=== PATIENT | female | born 2000 | race Caucasian/White ===

== ENCOUNTER 2019-01-22 17:56 | Emergency (ER) | payer OTHER ==
[~2019-01-22] VITALS: Ht 170.2 cm; Wt 68.0 kg
[2019-01-22] MEDS ORDERED: PRENA1 TRUE CO1 EACH (18:04)
== END 2019-01-22 20:40 | disposition home or self-care (01) ==
LOC: ER 17:56
DX: O26.892 Other specified pregnancy related conditions, second trimester (principal); M62.830 Muscle spasm of back; Z34.02 Encounter for supervision of normal first pregnancy, second trimester

== ENCOUNTER → 2019-04-20 | Outpatient (CLI) | payer OTHER ==
[~2019-04-20] MED LIST: PRENA1 TRUE CO1 EACH
== END | disposition home or self-care (01) ==
LOC: NST 15:29
DX: Z34.83 Encounter for supervision of other normal pregnancy, third trimester (principal)

== ENCOUNTER 2024-06-04 09:32 | Outpatient (CLI) | payer OTHER | END 2024-06-04 09:33 | disposition home or self-care (01) | LOC: PRENATAL 09:32 | PROVIDERS: ATTEND Obstetrics & Gynecology Maternal & Fetal Medicine | DX: O26.849 Uterine size-date discrepancy, unspecified trimester (principal); O36.8199 Decreased fetal movements, unspecified trimester, other fetus; Z3A.32 32 weeks gestation of pregnancy ==

== ENCOUNTER 2024-06-17 03:33 | Inpatient (IN) | payer OTHER ==
[~2024-06-17] VITALS: Ht 172.7 cm; Wt 88.5 kg
[2024-06-17] VITALS (7 sets, daily range): BP systolic 96–118; BP diastolic 61–94; O2SAT 100
[2024-06-17] MEDS ORDERED: BETAMETHASONE ACETATE,SOD PHOS 30 MG/5 ML ML IM SCH (03:43)
[2024-06-17] MEDS ORDERED: AMPICILLIN SODIUM 2,000 MG VIAL IV ONE (03:45)
[2024-06-17] MEDS ORDERED: RINGERS SOLUTION,LACTATED 1,000 ML IV SCH (03:45)
[2024-06-17] MEDS ORDERED: AMPICILLIN SODIUM 1,000 MG VIAL IV SCH (04:00)
[2024-06-17 04:34] LABS: HEMATOCRIT 33.8 % (36.0-45.00); HEMOGLOBIN 11.1 g/dL (12.0-15.00); MEAN CELL VOLUME 85.9 fL (80.00-100.00); MEAN CORPUSCULAR HEMOGLOBIN 28.1 pg (27.00-32.0); MEAN CORPUSCULAR HGB CONC 32.7 g/dl (32.0-36.0); PLATELET COUNT 218 K/uL (150-450); RED BLOOD COUNT 3.94 M/uL (4.00-6.00); RED CELL DISTRIBUTION WIDTH 14.1 % (11.5-14.5)
[2024-06-17 04:50] LABS: INR 0.98; PARTIAL THROMBOPLASTIN TIME 26.8 SECONDS (22.0-34.0); PROTHROMBIN TIME 10.7 SECONDS (9.0-11.5)
[2024-06-17 04:55] LABS: ALBUMIN 2.9 gm/dL (3.4-5.0); BILIRUBIN TOTAL 0.25 mg/dL (0.3-1.2); CALCIUM 8.5 mg/dL (8.5-10.1); CREATININE SERUM 0.45 mg/dL (0.55-1.02); GFR 169.76; GLOBULINA 3.6 G/DL (2.4-3.5); POTASSIUM 3.73 mEq/L (3.5-5.1); TOTAL PROTEIN 6.5 gm/dL (6.4-8.2)
[2024-06-17 05:01] LABS: PH,URINE 5.5 (5.0-8.0); URINE APPEARANCE Clear; URINE BILIRRUBIN Negative (NEGATIVE); URINE BLOOD Negative; URINE COLOR Yellow; URINE GLUCOSE Negative (NEGATIVE); URINE KETONE Trace (NEGATIVE); URINE LEUKOCYTE Small; URINE NITRATE Negative; URINE PROTEIN Trace (NEGATIVE)
[2024-06-17 05:02] LABS: URINE BACTERIA 6758.4 uL (0.0-1933); URINE CAST 2.74 uL (0.0-1.40); URINE EPITHELIAL CELLS 95.8 uL (0.0-38.8); URINE RBC 20.4 uL (0.0-20.8)
[2024-06-17 05:14] LABS: URINE CRYSTALS MANY /HPF
[2024-06-17] MEDS ORDERED: PROMETHAZINE HCL 25 MG/ML AMPUL IV ONE (05:30)
[2024-06-17] MEDS ORDERED: FAMOTIDINE/PF 20 MG/2 ML VIAL IV PUSH ONE (05:30)
[2024-06-17] MEDS ORDERED: PROMETHAZINE HCL 25 MG/ML AMPUL ONE (11:59)
[2024-06-17] MEDS ORDERED: PROMETHAZINE HCL 25 MG/ML AMPUL IV NR (12:00)
[2024-06-17] MEDS ORDERED: MEPERIDINE HCL/PF 50 MG/ML VIAL IV ONE (13:30)
[2024-06-17] MEDS ORDERED: PROMETHAZINE HCL 25 MG/ML AMPUL IV PRN (17:00)
[2024-06-17] MEDS ORDERED: FAMOTIDINE/PF 20 MG/2 ML VIAL IV SCH (18:00)
[2024-06-18 04:08] VITALS: BP 105/69
[2024-06-18 06:29] LABS: HEMATOCRIT 31.1 % (36.0-45.00); HEMOGLOBIN 10.5 g/dL (12.0-15.00); MEAN CELL VOLUME 85.3 fL (80.00-100.00); MEAN CORPUSCULAR HEMOGLOBIN 28.8 pg (27.00-32.0); MEAN CORPUSCULAR HGB CONC 33.8 g/dl (32.0-36.0); PLATELET COUNT 221 K/uL (150-450); RED BLOOD COUNT 3.64 M/uL (4.00-6.00); RED CELL DISTRIBUTION WIDTH 13.9 % (11.5-14.5)
[2024-06-18 06:35] VITALS: BP 99/65; O2SAT 100
[2024-06-18 08:15] LABS: ALBUMIN 2.6 gm/dL (3.4-5.0); BILIRUBIN TOTAL 0.59 mg/dL (0.3-1.2); CALCIUM 8.3 mg/dL (8.5-10.1); CREATININE SERUM 0.36 mg/dL (0.55-1.02); GFR 219.62; GLOBULINA 3.4 G/DL (2.4-3.5)
[2024-06-18 12:01] VITALS: BP 110/72; O2SAT 100
[2024-06-18 15:11] VITALS: BP 108/76
== END 2024-06-18 18:34 | disposition home or self-care (01) | DRG 833 ==
LOC: LDR 03:33
PROVIDERS: Obstetrics & Gynecology; ADMIT Obstetrics & Gynecology; ATTEND Obstetrics & Gynecology
PROC: BY4FZZZ Ultrasonography of Third Trimester, Single Fetus (ICD-10-PCS; principal; 2024-06-17)
PROC: BT43ZZZ Ultrasonography of Bilateral Kidneys (ICD-10-PCS; 2024-06-17)
PROC: 4A1HXCZ Monitoring of Products of Conception, Cardiac Rate, External Approach (ICD-10-PCS; 2024-06-17)
PROC: BF42ZZZ Ultrasonography of Gallbladder (ICD-10-PCS; 2024-06-17)
DX: O26.893 Other specified pregnancy related conditions, third trimester (principal); K29.70 Gastritis, unspecified, without bleeding; O99.613 Diseases of the digestive system complicating pregnancy, third trimester; K80.20 Calculus of gallbladder without cholecystitis without obstruction; Z3A.34 34 weeks gestation of pregnancy; O23.43 Unspecified infection of urinary tract in pregnancy, third trimester; Z20.822 Contact with and (suspected) exposure to COVID-19

== ENCOUNTER 2024-06-22 11:10 | Inpatient (IN) | payer OTHER ==
[~2024-06-22] VITALS: Ht 172.7 cm; Wt 88.5 kg
[2024-06-22 10:23] VITALS: BP 114/76; O2SAT 99
[~2024-06-22 11:10] MED LIST changes: -AMPICILLIN SOD500 MG PO; -PEPCID AC20 MG PO; -PREVACID15 M1 PO
[2024-06-22] MEDS ORDERED: PEPCID AC20 MG PO (11:23)
[2024-06-22] MEDS ORDERED: PREVACID15 M1 PO (11:23)
[2024-06-22] MEDS ORDERED: AMPICILLIN SOD500 MG PO (11:24)
[2024-06-22] MEDS ORDERED: PANTOPRAZOLE SODIUM 40 MG/VIAL VIAL IV SCH (11:30)
[2024-06-22] MEDS ORDERED: RINGERS SOLUTION,LACTATED 1,000 ML IV SCH (11:30)
[2024-06-22] MEDS ORDERED: CEFAZOLIN SODIUM 1,000 MG VIAL IV SCH (12:00)
[2024-06-22 12:16] LABS: HEMATOCRIT 32.2 % (36.0-45.00); HEMOGLOBIN 10.7 g/dL (12.0-15.00); MEAN CELL VOLUME 85.5 fL (80.00-100.00); MEAN CORPUSCULAR HEMOGLOBIN 28.4 pg (27.00-32.0); MEAN CORPUSCULAR HGB CONC 33.2 g/dl (32.0-36.0); PLATELET COUNT 249 K/uL (150-450); RED BLOOD COUNT 3.77 M/uL (4.00-6.00); RED CELL DISTRIBUTION WIDTH 14.3 % (11.5-14.5)
[2024-06-22] MEDS ORDERED: PROMETHAZINE HCL 25 MG/ML AMPUL ONE (12:40)
[2024-06-22] MEDS ORDERED: MEPERIDINE HCL/PF 25 MG/ML VIAL IV ONE (13:30)
[2024-06-22] MEDS ORDERED: PROMETHAZINE HCL 25 MG/ML AMPUL IV ONE (13:30)
[2024-06-22 13:39] LABS: PH,URINE 5.5 (5.0-8.0); URINE APPEARANCE Clear; URINE BILIRRUBIN Moderate (NEGATIVE); URINE BLOOD Negative; URINE COLOR Dark Yellow; URINE GLUCOSE Negative (NEGATIVE); URINE LEUKOCYTE Trace; URINE NITRATE Negative; URINE PROTEIN 30 (NEGATIVE)
[2024-06-22 13:42] LABS: URINE BACTERIA 32.7 uL (0.0-1933); URINE EPITHELIAL CELLS 31.1 uL (0.0-38.8); URINE RBC 7.4 uL (0.0-20.8); URINE WBC 3.8 uL (0.0-23.2)
[2024-06-22 14:07] LABS: URINE KETONE >=160 (NEGATIVE)
[2024-06-22 14:09] LABS: URINE EPITHELIAL CELLS 0-4 /HPF
[2024-06-22 15:50] VITALS: BP 100/65
[2024-06-22] MEDS ORDERED: hydrOXYzine PAMOATE 25 MG CAPSULE PO ONE (18:00)
[2024-06-22] MEDS ORDERED: TERBUTALINE SULFATE 1 MG/ML AMPUL SUBCUTANEO ONE (18:00)
[2024-06-22 19:45] VITALS: BP 120/69
[2024-06-22 23:42] VITALS: BP 116/77; O2SAT 99
[2024-06-23] VITALS (10 sets, daily range): BP systolic 101–130; BP diastolic 67–82; O2SAT 100
[2024-06-23] MEDS ORDERED: FAMOTIDINE/PF 20 MG/2 ML VIAL IV STA (00:21)
[2024-06-23] MEDS ORDERED: hydrOXYzine PAMOATE 50 MG CAPSULE PO STA (00:55)
[2024-06-23 01:47] LABS: AMYLASE 91 U/L (25-115)
[2024-06-23 02:10] LABS: LIPASE 107 U/L (13-75)
[2024-06-23 02:25] LABS: ALBUMIN 2.6 gm/dL (3.4-5.0); BILIRUBIN TOTAL 1.14 mg/dL (0.3-1.2); CALCIUM 8.6 mg/dL (8.5-10.1); CREATININE SERUM 0.54 mg/dL (0.55-1.02); GFR 137.55; GLOBULINA 3.5 G/DL (2.4-3.5); POTASSIUM 4.03 mEq/L (3.5-5.1); TOTAL PROTEIN 6.1 gm/dL (6.4-8.2)
[2024-06-23] MEDS ORDERED: MORPHINE SULFATE 4 MG/ML CARTRIDGE IV ONE (09:00)
[2024-06-23] MEDS ORDERED: PIPERACILLIN/TAZOBACTAM SODIUM 3.375 GM in 0.9 % SODIUM CHLORIDE 100 ML IV SCH (12:40)
[2024-06-23] MEDS ORDERED: PROMETHAZINE HCL 25 MG/ML AMPUL IV PRN (13:00)
[2024-06-23] MEDS ORDERED: MEPERIDINE HCL/PF 50 MG/ML VIAL IV PRN ×2 (13:00→20:00)
[2024-06-23] MEDS ORDERED: SODIUM CL 0.9% 100 ML IV.SOLN IV ONE (16:52)
[2024-06-24 03:02] VITALS: BP 102/66
[2024-06-24 06:35] VITALS: BP 99/60; O2SAT 99
[2024-06-24 06:59] LABS: HEMATOCRIT 29.4 % (36.0-45.00); HEMOGLOBIN 9.8 g/dL (12.0-15.00); MEAN CORPUSCULAR HEMOGLOBIN 28.8 pg (27.00-32.0); MEAN CORPUSCULAR HGB CONC 33.5 g/dl (32.0-36.0); PLATELET COUNT 218 K/uL (150-450); RED BLOOD COUNT 3.42 M/uL (4.00-6.00); RED CELL DISTRIBUTION WIDTH 14.5 % (11.5-14.5)
[2024-06-24 07:30] LABS: ALBUMIN 2.2 gm/dL (3.4-5.0); BILIRUBIN TOTAL 0.86 mg/dL (0.3-1.2); CALCIUM 8.2 mg/dL (8.5-10.1); CREATININE SERUM 0.38 mg/dL (0.55-1.02); GFR 206.34; GLOBULINA 3.1 G/DL (2.4-3.5); POTASSIUM 3.96 mEq/L (3.5-5.1); TOTAL PROTEIN 5.3 gm/dL (6.4-8.2)
[2024-06-24 12:22] VITALS: BP 103/63; O2SAT 97
[2024-06-24 15:12] VITALS: BP 97/61
[2024-06-24 19:01] VITALS: BP 104/69
[2024-06-24 23:49] VITALS: BP 100/62
[2024-06-25 03:27] VITALS: BP 100/55
[2024-06-25 04:56] VITALS: BP 108/71
[2024-06-25 06:29] LABS: HEMATOCRIT 30.7 % (36.0-45.00); HEMOGLOBIN 10.3 g/dL (12.0-15.00); MEAN CELL VOLUME 86.1 fL (80.00-100.00); MEAN CORPUSCULAR HEMOGLOBIN 28.8 pg (27.00-32.0); MEAN CORPUSCULAR HGB CONC 33.4 g/dl (32.0-36.0); PLATELET COUNT 207 K/uL (150-450); RED BLOOD COUNT 3.56 M/uL (4.00-6.00); RED CELL DISTRIBUTION WIDTH 14.7 % (11.5-14.5)
[2024-06-25 06:41] LABS: ALBUMIN 2.1 gm/dL (3.4-5.0); BILIRUBIN TOTAL 0.77 mg/dL (0.3-1.2); CALCIUM 8.4 mg/dL (8.5-10.1); CREATININE SERUM 0.44 mg/dL (0.55-1.02); GFR 174.23; GLOBULINA 3.1 G/DL (2.4-3.5); POTASSIUM 3.95 mEq/L (3.5-5.1); TOTAL PROTEIN 5.2 gm/dL (6.4-8.2)
[2024-06-25 08:42] VITALS: BP 98/66
[2024-06-25 17:47] VITALS: BP 118/81
[2024-06-26 02:03] VITALS: BP 101/55
[2024-06-26 06:30] LABS: HEMATOCRIT 29.4 % (36.0-45.00); HEMOGLOBIN 9.9 g/dL (12.0-15.00); MEAN CELL VOLUME 85.7 fL (80.00-100.00); MEAN CORPUSCULAR HEMOGLOBIN 28.7 pg (27.00-32.0); MEAN CORPUSCULAR HGB CONC 33.5 g/dl (32.0-36.0); PLATELET COUNT 214 K/uL (150-450); RED BLOOD COUNT 3.43 M/uL (4.00-6.00); RED CELL DISTRIBUTION WIDTH 14.6 % (11.5-14.5)
[2024-06-26 07:08] LABS: BILIRUBIN TOTAL 0.58 mg/dL (0.3-1.2); CALCIUM 8.2 mg/dL (8.5-10.1); CREATININE SERUM 0.46 mg/dL (0.55-1.02); GFR 165.51; GLOBULINA 2.9 G/DL (2.4-3.5); POTASSIUM 4.21 mEq/L (3.5-5.1); TOTAL PROTEIN 4.9 gm/dL (6.4-8.2)
[2024-06-26 08:00] VITALS: BP 108/66
[2024-06-26 16:00] VITALS: BP 109/68
[2024-06-27] VITALS: BP 100/65
[2024-06-27 07:00] LABS: HEMATOCRIT 29.5 % (36.0-45.00); MEAN CELL VOLUME 84.5 fL (80.00-100.00); MEAN CORPUSCULAR HEMOGLOBIN 28.7 pg (27.00-32.0); PLATELET COUNT 199 K/uL (150-450); RED BLOOD COUNT 3.49 M/uL (4.00-6.00); RED CELL DISTRIBUTION WIDTH 14.9 % (11.5-14.5)
[2024-06-27 07:39] LABS: ALBUMIN 2.1 gm/dL (3.4-5.0); BILIRUBIN TOTAL 0.42 mg/dL (0.3-1.2); CALCIUM 8.1 mg/dL (8.5-10.1); CREATININE SERUM 0.42 mg/dL (0.55-1.02); GFR 183.83; POTASSIUM 4.11 mEq/L (3.5-5.1); TOTAL PROTEIN 5.1 gm/dL (6.4-8.2)
[2024-06-27 08:00] VITALS: BP 111/75
== END 2024-06-27 13:12 | disposition home or self-care (01) | DRG 831 ==
LOC: OBS/DEL 11:10 → OB/GYN 06-23 01:54 → OBS/DEL 06-23 01:54 → LDR 06-23 01:54 → OB/GYN 06-25 03:11
PROVIDERS: Obstetrics & Gynecology; Specialist; ADMIT Student in an Organized Health Care Education/Training Program; ATTEND Student in an Organized Health Care Education/Training Program
PROC: BW40ZZZ Ultrasonography of Abdomen (ICD-10-PCS; principal; 2024-06-23)
PROC: 4A1HXCZ Monitoring of Products of Conception, Cardiac Rate, External Approach (ICD-10-PCS; 2024-06-23)
DX: O99.613 Diseases of the digestive system complicating pregnancy, third trimester (principal); K85.90 Acute pancreatitis without necrosis or infection, unspecified; K81.9 Cholecystitis, unspecified; O99.283 Endocrine, nutritional and metabolic diseases complicating pregnancy, third trimester; Z3A.35 35 weeks gestation of pregnancy; Z20.822 Contact with and (suspected) exposure to COVID-19
CPT/HCPCS: 240

== ENCOUNTER → 2024-06-22 | Emergency (ER) | payer OTHER ==
[~2024-06-22] MED LIST changes: +AMPICILLIN SOD500 MG PO; +PEPCID AC20 MG PO; +PREVACID15 M1 PO
== END | disposition left against medical advice (07) ==
LOC: ER 09:37
DX: Z53.21 Procedure and treatment not carried out due to patient leaving prior to being seen by health care provider (principal)

== ENCOUNTER 2024-07-16 13:45 | Inpatient (IN) | payer OTHER ==
[~2024-07-16] VITALS: Ht 172.7 cm; Wt 86.2 kg
[~2024-07-16 13:45] MED LIST changes: +AMPICILLIN SOD500 MG PO; +PEPCID AC20 MG PO; +PREVACID15 M1 PO
[2024-07-16 14:05] LABS: HEMATOCRIT 33.9 % (36.0-45.00); HEMOGLOBIN 11.2 g/dL (12.0-15.00); MEAN CELL VOLUME 83.6 fL (80.00-100.00); MEAN CORPUSCULAR HEMOGLOBIN 27.6 pg (27.00-32.0); MEAN CORPUSCULAR HGB CONC 33.1 g/dl (32.0-36.0); PLATELET COUNT 211 K/uL (150-450); RED BLOOD COUNT 4.06 M/uL (4.00-6.00); RED CELL DISTRIBUTION WIDTH 15.6 % (11.5-14.5)
[2024-07-16 14:06] LABS: PH,URINE 7.5 (5.0-8.0); URINE APPEARANCE Cloudy; URINE BILIRRUBIN Negative (NEGATIVE); URINE BLOOD Trace; URINE COLOR Yellow; URINE GLUCOSE Negative (NEGATIVE); URINE KETONE Negative (NEGATIVE); URINE LEUKOCYTE Large; URINE NITRATE Negative; URINE PROTEIN Negative (NEGATIVE)
[2024-07-16 14:07] LABS: URINE BACTERIA 2744.1 uL (0.0-1933); URINE RBC 6.4 uL (0.0-20.8); URINE WBC 296.6 uL (0.0-23.2)
[2024-07-16 14:40] LABS: INR 0.98; PARTIAL THROMBOPLASTIN TIME 27.1 SECONDS (22.0-34.0); PROTHROMBIN TIME 10.7 SECONDS (9.0-11.5)
[2024-07-16 14:41] LABS: URINE EPITHELIAL CELLS > 201.7 uL (0.0-38.8)
[2024-07-16 15:00] LABS: BILIRUBIN TOTAL 0.45 mg/dL (0.3-1.2); CALCIUM 9.3 mg/dL (8.5-10.1); CREATININE SERUM 0.52 mg/dL (0.55-1.02); GFR 143.68; GLOBULINA 3.7 G/DL (2.4-3.5); POTASSIUM 4.86 mEq/L (3.5-5.1); TOTAL PROTEIN 6.7 gm/dL (6.4-8.2)
[2024-07-21] VITALS (9 sets, daily range): BP systolic 111–133; BP diastolic 63–84
[2024-07-21] MEDS ORDERED: RINGERS SOLUTION,LACTATED 1,000 ML IV SCH (08:15)
[2024-07-21] MEDS ORDERED: IBUprofen 800 MG TABLET PO PRN (10:00)
[2024-07-21] MEDS ORDERED: OXYTOCIN 1,000 ML IV SCH (10:00)
[2024-07-21] MEDS ORDERED: ERYTHROMYCIN BASE OPHT 1GM EACH TUBE OP ONE (10:15)
[2024-07-21] MEDS ORDERED: LIDOCAINE HCL 1% 10ML VIAL IJ ONE (10:15)
[2024-07-21] MEDS ORDERED: CHLORHEXIDINE GLUCONATE 120 ML BOTTLE TOP ONE (10:15)
[2024-07-21 14:29] LABS: HEMATOCRIT 31.6 % (36.0-45.00); HEMOGLOBIN 10.4 g/dL (12.0-15.00); MEAN CELL VOLUME 84.4 fL (80.00-100.00); MEAN CORPUSCULAR HEMOGLOBIN 27.7 pg (27.00-32.0); MEAN CORPUSCULAR HGB CONC 32.8 g/dl (32.0-36.0); PLATELET COUNT 199 K/uL (150-450); RED BLOOD COUNT 3.75 M/uL (4.00-6.00); RED CELL DISTRIBUTION WIDTH 15.3 % (11.5-14.5)
[2024-07-22] VITALS: BP 113/74
[2024-07-22 08:00] VITALS: BP 115/67
[2024-07-22] MEDS ORDERED: PNV,CALCIUM 72/IRON/FOLIC ACID 1 TAB TABLET PO SCH (09:00)
[2024-07-22 17:34] VITALS: BP 115/78
[2024-07-23 00:34] VITALS: BP 93/60
[2024-07-23 07:55] VITALS: BP 111/65
== END 2024-07-23 16:45 | disposition home or self-care (01) | DRG 807 ==
LOC: LDR 07-21 08:02 → OB/GYN 07-21 08:02 → LDR 07-26 13:45
PROVIDERS: ADMIT Student in an Organized Health Care Education/Training Program; ATTEND Student in an Organized Health Care Education/Training Program
PROC: 10E0XZZ Delivery of Products of Conception, External Approach (ICD-10-PCS; principal; 2024-07-21)
PROC: 0HQ9XZZ Repair Perineum Skin, External Approach (ICD-10-PCS; 2024-07-21)
PROC: 4A1HXCZ Monitoring of Products of Conception, Cardiac Rate, External Approach (ICD-10-PCS; 2024-07-21)
DX: O70.0 First degree perineal laceration during delivery (principal); Z37.0 Single live birth; Z3A.39 39 weeks gestation of pregnancy; Z20.822 Contact with and (suspected) exposure to COVID-19

== ENCOUNTER 2024-11-30 23:16 | Inpatient (IN) | payer OTHER ==
[~2024-11-30] VITALS: Ht 170.2 cm; Wt 80.7 kg
--- NOTE | 2024-11-30 23:33 | NUR ---
PACIENTE ALERTA Y ORIENTADA X 3. REFIERE DESDE LAS 3PM DOLOR ABDOMINAL LADO DERECHO LO QUE REFIERE ENTIENDE ES VESICULA DEBIDO A QUE PRESENTO MISMO DOLOR EN EMBARAZO Y NO PUDO SER TRATADA Y HOY LE VOLVIO EL MISMO DOLOR.
[2024-11-30] MEDS ORDERED: ANTICONCEPTIVAS (23:34)
[2024-12-01] MEDS ORDERED: MEPERIDINE HCL/PF 25 MG/ML VIAL IM STA (01:17)
[2024-12-01] MEDS ORDERED: PROMETHAZINE HCL 50 MG/ML AMPUL IM STA (01:18)
[2024-12-01] MEDS ORDERED: FAMOTIDINE/PF 20 MG/2 ML VIAL IV PUSH STA (01:18)
[2024-12-01] MEDS ORDERED: PROMETHAZINE HCL 50 MG/ML AMPUL IM ONE (01:24)
[2024-12-01] MEDS ORDERED: FAMOTIDINE/PF 20 MG/2 ML VIAL ONE ×2 (01:24→11:04)
[2024-12-01] MEDS ORDERED: RINGERS SOLUTION,LACTATED 1,000 ML IV ONE (01:30)
[2024-12-01] MEDS ORDERED: KETOROLAC TROMETHAMINE 30 MG VIAL IV STA (01:37)
[2024-12-01] MEDS ORDERED: KETOROLAC TROMETHAMINE 30 MG VIAL ONE (01:39)
--- NOTE | 2024-12-01 01:43 | NUR ---
SE ORIENTA PTE SOBRE TX MEDICO EL CUAL REFIERE ENTENDER.SE LE EXTRAEN MUESTRAS BAJO MEDIDAS ASEPTICAS,SE CANALIZA Y SE ADMINISTRAN MEDICAMENTOS PRASAD ORDEN MEDICA.SE NOTIFICA SONOGRAMA A MS ARRIETA.
[2024-12-01 01:48] LABS: HEMATOCRIT 38.7 % (36.0-45.00); MEAN CELL VOLUME 91.4 fL (80.00-100.00); MEAN CORPUSCULAR HEMOGLOBIN 30.6 pg (27.00-32.0); MEAN CORPUSCULAR HGB CONC 33.4 g/dl (32.0-36.0); PLATELET COUNT 295 K/uL (150-450); RED BLOOD COUNT 4.24 M/uL (4.00-6.00); RED CELL DISTRIBUTION WIDTH 13.5 % (11.5-14.5)
[2024-12-01 02:01] LABS: INR 1.06; PARTIAL THROMBOPLASTIN TIME 29.3 SECONDS (22.0-34.0); PROTHROMBIN TIME 11.5 SECONDS (9.0-11.5)
[2024-12-01 02:34] LABS: BILIRUBIN TOTAL 1.55 mg/dL (0.3-1.2); BILIRUBIN,CONJUGATED 0.86 mg/dL (0.0-0.2); BILIRUBIN,UNCONJUGATED 0.69 mg/dL (0.0-0.6); CALCIUM 8.7 mg/dL (8.5-10.1); CREATININE SERUM 0.67 mg/dL (0.55-1.02); GFR 106.39; GLOBULINA 3.7 G/DL (2.4-3.5); POTASSIUM 3.76 mEq/L (3.5-5.1); TOTAL PROTEIN 7.7 gm/dL (6.4-8.2)
[2024-12-01 03:53] LABS: URINE APPEARANCE Clear; URINE BILIRRUBIN Negative (NEGATIVE); URINE BLOOD Large; URINE COLOR Yellow; URINE GLUCOSE Negative (NEGATIVE); URINE KETONE 15 (NEGATIVE); URINE LEUKOCYTE Trace; URINE NITRATE Negative; URINE PROTEIN Negative (NEGATIVE)
[2024-12-01 03:57] LABS: URINE BACTERIA 231.2 uL (0.0-1933); URINE EPITHELIAL CELLS 10.7 uL (0.0-38.8); URINE RBC 190.3 uL (0.0-20.8)
--- NOTE | 2024-12-01 08:00 | NUR ---
SE RECIBE PACIENTE FEMENINA ALERTA Y ORIENTADO X3, EN MICHAEL #9 CON BARANDAS ELEVADAS. AREA DE VENOPUNCION PATENTE MITRA DE EDEMA Y ENROJECIMIENTO. PENDIENTE LA CONSULRA CON . SE LE REI EN TODO MOMENTO PRIVACIDAD Y SEGURIDAD.
[2024-12-01] MEDS ORDERED: FAMOTIDINE/PF 20 MG in 0.9 % SODIUM CHLORIDE 8 ML IV PUSH SCH (10:18)
[2024-12-01] MEDS ORDERED: 0.9 % SODIUM CHLORIDE 1,000 ML IV SCH (10:30)
[2024-12-01] MEDS ORDERED: MORPHINE SULFATE 2 MG/ML CARTRIDGE IV PRN (10:30)
[2024-12-01] MEDS ORDERED: PIPERACILLIN/TAZOBACTAM SODIUM 3.375 GM VIAL IV ONE (11:03)
[2024-12-01] MEDS ORDERED: PIPERACILLIN/TAZOBACTAM SODIUM 3.375 GM in 0.9 % SODIUM CHLORIDE 100 ML IV SCH (12:00)
[2024-12-01 16:35] VITALS: BP 106/69; O2SAT 100
[2024-12-01] MEDS ORDERED: GLUCAGON 1 MG VIAL ONE (19:19)
[2024-12-01] MEDS ORDERED: IOVERSOL 320 MG/ML - 50 ML VIAL IV ONE (19:20)
[2024-12-02] MEDS ORDERED: PIPERACILLIN/TAZOBACTAM SODIUM 3.375 GM VIAL IV ONE ×2 (00:03→17:45)
[2024-12-02 01:17] VITALS: BP 103/66; O2SAT 99
[2024-12-02 08:00] VITALS: BP 100/653; O2SAT 97
[2024-12-02 08:37] LABS: ALBUMIN 3.2 gm/dL (3.4-5.0); BILIRUBIN TOTAL 1.19 mg/dL (0.3-1.2); BILIRUBIN,CONJUGATED 0.38 mg/dL (0.0-0.2); BILIRUBIN,UNCONJUGATED 0.81 mg/dL (0.0-0.6)
[2024-12-02] MEDS ORDERED: CEFAZOLIN SODIUM 1,000 MG VIAL ONE (13:29)
[2024-12-02] MEDS ORDERED: BUPIVACAINE HCL/MPF 0.5% 30ML VIAL ONE (13:33)
[2024-12-02] MEDS ORDERED: BUPIVACAINE HCL 30 ML VIAL IJ ONE (14:15)
[2024-12-02] MEDS ORDERED: CEFAZOLIN SODIUM 1,000 MG VIAL IV ONE (14:15)
[2024-12-02] MEDS ORDERED: MORPHINE SULFATE 4 MG/ML CARTRIDGE IV PRN (15:45)
[2024-12-02] MEDS ORDERED: MORPHINE SULFATE 4 MG/ML VIAL IV ONE (16:35)
[2024-12-02] MEDS ORDERED: ACETAMINOPHEN 500 MG GEL..CAP PO SCH (17:00)
[2024-12-02] MEDS ORDERED: GABAPENTIN 300 MG CAPSULE PO SCH (17:00)
[2024-12-03 01:17] VITALS: BP 108/70; O2SAT 100
[2024-12-03 08:00] VITALS: BP 104/76; O2SAT 98
[2024-12-03 10:01] LABS: HEMATOCRIT 36.5 % (36.0-45.00); MEAN CELL VOLUME 92.6 fL (80.00-100.00); MEAN CORPUSCULAR HEMOGLOBIN 30.5 pg (27.00-32.0); MEAN CORPUSCULAR HGB CONC 32.9 g/dl (32.0-36.0); PLATELET COUNT 242 K/uL (150-450); RED BLOOD COUNT 3.95 M/uL (4.00-6.00); RED CELL DISTRIBUTION WIDTH 13.3 % (11.5-14.5)
[2024-12-03 10:57] LABS: ALBUMIN 3.1 gm/dL (3.4-5.0); BILIRUBIN TOTAL 0.88 mg/dL (0.3-1.2); CALCIUM 8.2 mg/dL (8.5-10.1); CREATININE SERUM 0.65 mg/dL (0.55-1.02); GFR 110.18; POTASSIUM 4.22 mEq/L (3.5-5.1); TOTAL PROTEIN 6.1 gm/dL (6.4-8.2)
== END 2024-12-03 13:24 | disposition home or self-care (01) | DRG 419 ==
LOC: ER 23:19 → SEC-K 12-01 10:32 → SURH 12-01 10:32
PROVIDERS: General Practice; Student in an Organized Health Care Education/Training Program; ADMIT Internal Medicine; ATTEND Internal Medicine
PROC: 0F798ZZ Dilation of Common Bile Duct, Via Natural or Artificial Opening Endoscopic (ICD-10-PCS; 2024-12-01)
PROC: 0FC98ZZ Extirpation of Matter from Common Bile Duct, Via Natural or Artificial Opening Endoscopic (ICD-10-PCS; 2024-12-01)
PROC: BF10YZZ Fluoroscopy of Bile Ducts using Other Contrast (ICD-10-PCS; 2024-12-01)
PROC: 3E0T3BZ Introduction of Anesthetic Agent into Peripheral Nerves and Plexi, Percutaneous Approach (ICD-10-PCS; 2024-12-02)
PROC: 0FT44ZZ Resection of Gallbladder, Percutaneous Endoscopic Approach (ICD-10-PCS; principal; 2024-12-02 11:15)
DX: K80.10 Calculus of gallbladder with chronic cholecystitis without obstruction (principal); E80.6 Other disorders of bilirubin metabolism; R59.0 Localized enlarged lymph nodes